=== PATIENT | female | born 1995 | race African-American/Black ===

== ENCOUNTER 2018-07-21 22:00 | Emergency (ER) | payer OTHER ==
[2018-07-22] MEDS ORDERED: Lidocaine 1% MPF* 2 ML VIAL INJ ONE (00:09)
--- NOTE | 2018-07-22 00:15 | ED ---
Laceration/Wound HPI - HPI Summary HPI Summary: 22 year old female presents with laceration to pad of distal right middle finger. States occurred earlier this evening with a sharp kitchen knife while preparing supper. Bleeding controlled with direct pressure. Has full ROM to finger. Denies numbness or tingling. Last tetanus 2015. - History of Current Complaint Stated Complaint: RT MIDDLE FINGER LAC Time Seen by Provider: 07/22/18 00:04 Hx Obtained From: Patient Mechanism of Injury: Sharp/Blunt Trauma Onset/Duration: Sudden Onset Aggravating: Nothing Alleviating: Nothing Current Severity: Mild Pain Intensity: 4 Associated Signs & Symptoms: Negative - Allergy/Home Medications Allergies/Adverse Reactions: Allergies Allergy/AdvReac Type Severity Reaction Status Date / Time No Known Allergies Allergy Verified 07/21/18 22:04 PMH/Surg Hx/FS Hx/Imm Hx Previously Healthy: Yes - Denies significant PMH Endocrine/Hematology History: Denies: Hx Anticoagulant Therapy Sensory History: Reports: Hx Contacts or Glasses Opthamlomology History: Reports: Hx Contacts or Glasses Infectious Disease History: No Infectious Disease History: Denies: Traveled Outside the [place] in Last 30 Days - Family History Known Family History: Positive: Non-Contributory - Social History Occupation: Student Lives: Dormitory/Roommates Alcohol Use: None Substance Use Type: Reports: None Smoking Status (MU): Never Smoked Tobacco Review of Systems Negative: Fever, Chills Negative: Decreased ROM Positive: Other - See HPI Negative: Paresthesia, Numbness All Other Systems Reviewed And Are Negative: Yes Physical Exam - Summary Physical Exam Summary: GENERAL APPEARANCE: Well developed, well nourished, alert and cooperative, and appears to be in no acute distress. CARDIAC: Normal S1 and S2. No S3, S4 or murmurs. Rhythm is regular. There is no peripheral edema, cyanosis or pallor. Extremities are warm and well perfused. Capillary refill is less than 2 seconds. LUNGS: Clear to auscultation and percussion without rales, rhonchi, wheezing or diminished breath sounds. ABDOMEN: Positive bowel sounds. Soft, nondistended, nontender. No guarding or rebound. No masses or hepatosplenomegally. MUSKULOSKELETAL: ROM intact to all extremities. No joint erythema or tenderness. Normal muscular development. Normal gait. EXTREMITIES: No significant deformity or joint abnormality. No edema. Peripheral pulses intact. NEUROLOGICAL: Strength and sensation symmetric and intact throughout. SKIN: General skin assessment reveals normal color, texture and turgor. There is a 2 cm superficial laceration to the palmar aspect of the distal right middle finger without any nail involvement. There is some exposed adipose tissue. Bleeding is well controlled. Triage Information Reviewed: Yes Vital Signs On Initial Exam: Initial Vitals Temp Pulse Resp BP Pulse Ox 98.2 F 87 16 155/82 98 07/21/18 22:02 07/21/18 22:02 07/21/18 22:02 07/21/18 22:02 07/21/18 22:02 Vital Signs Reviewed: Yes Procedures - Procedure Summary Procedure Summary: Procedure note: Laceration repair right middle finger Informed consent was obtained before procedure started and the appropriate timeout was taken. The area was prepped with Betadine solution. Local anesthesia was achieved using 1.5 ml of lidocaine 1% without epinephrine. The wound was copiously irrigated with tap water. A small amount of adipose tissue was sharply debrided and the wound margins were brought into good alignment. A total of 5 interrupted sutures were placed using 6-0 Ethilon. Estimated blood loss was minimal. A dressing was applied to the area. Anticipatory guidance, as well as standard post-procedure care was discussed with patient. Return precautions are given. The patient tolerated the procedure well without complications. Patient is to follow up in 10 days for suture removal and evaluation of the laceration. - Laceration/Wound Repair 1 Location: Other - Right middle finger Description: Linear Anesthesia: Local, 1.0% Length, Depth and Shape: Linear superficial 2 cm laceration Closure: Single Layer Debridement: minimal Suture Type: Nylon - 6-0 Ethilon Number of Sutures: 5 Layer Closure?: No Sterile Dressing Applied?: Yes - Adhesive bandage Diagnostics - Vital Signs Vital Signs Temp Pulse Resp BP Pulse Ox 07/21/18 22:02 98.2 F 87 16 155/82 98 - Laboratory Lab Statement: Any lab studies that have been ordered have been reviewed, and results considered in the medical decision making process. Laceration Repair Course/Dx - Course Course Of Treatment: 22 year old female presents with laceration to pad of distal right middle finger. States occurred earlier this evening with a sharp kitchen knife while preparing supper. Bleeding controlled with direct pressure. Has full ROM to finger. Denies numbness or tingling. Last tetanus 2015. The wound was cleansed and repaired with 5 interrupted sutures using 6-0 Ethilon. Wound care and warning symptoms were reviewed with the patient. She is to have the sutures removed in 10 days. Verbalizes understanding and agrees with POC. - Clinical Impression Provider Diagnoses: Laceration of right middle finger Discharge - Sign-Out/Discharge Documenting (check all that apply): Patient Departure - Discharge Plan Condition: Stable Disposition: HOME Patient Education Materials: Care For Your Stitches (ED), Finger Laceration (ED ) Referrals: No Primary Care Phys,NOPCP [Primary Care Provider] - Additional Instructions: The numbing medication that was used today in the repair of your laceration will wear off in 1-2 hours. You may use an over the counter pain medication such as acetaminophen (Tylenol) or ibuprofen (Advil, Motrin) according to directions as needed for pain. We gave you a dose of naproxen in the emergency room so you should not need anything for at least 12 hours. Keep the dressing that was applied in the clinic in place for the next 24 hours. Be sure to keep it clean and dry. After 24 hours, you may remove the dressing and wash your hands and shower normally. The wound should be gently cleaned at least once daily with soap and water or anytime the area becomes soiled. Apply a small amount of bacitracin ointment to the wound. Keep the wound covered with a gauze dressing to avoid contamination. Change the dressing daily or anytime it becomes wet or soiled. Your stitches should be removed in 10 days. You can have this done in urgent care or follow up with your primary care provider. Watch for signs of infection including fever greater than 100.5 F, pain that is not managed with over the counter pain medications, increased swelling, redness that spreads, numbness in the finger, paleness or blue discoloration in the finger, or any pus draining from the wound. Seek immediate medical attention if any of these occur. - Billing Disposition and Condition Condition: STABLE Disposition: Home
[2018-07-22] MEDS ORDERED: Lidocaine 1%* 5 ML VIAL ONE (00:17)
[2018-07-22] MEDS ORDERED: Naproxen TAB* 250 MG PO ONE (00:54)
[2018-07-22 01:12] VITALS: BP 119/65
== END 2018-07-22 01:11 | disposition home or self-care (01) ==
LOC: ED 22:00
DX: S61.212A Laceration without foreign body of right middle finger without damage to nail, initial encounter (principal); W26.0XXA Contact with knife, initial encounter; Y93.G1 Activity, food preparation and clean up; Y92.9 Unspecified place or not applicable
CPT/HCPCS: 12001; 99282; A9270-GY